=== PATIENT | female | born 1945 | race Caucasian/White ===

== ENCOUNTER 2016-11-26 08:32 | Outpatient (CLI) | payer MEDICARE, OTHER ==
[2016-11-26 09:05] LABS: eGFR (African) > 60; eGFR (Non-African) > 60
== END 2016-11-26 08:38 | disposition home or self-care (01) ==
LOC: LAB 08:32
PROVIDERS: ATTEND Nurse Practitioner Family
DX: E87.5 Hyperkalemia (principal)
CPT/HCPCS: 36415; 80048